=== PATIENT | male | born 2000 | race Two or more races ===

== ENCOUNTER 2025-02-18 12:23 | Emergency (ER) | payer OTHER ==
[~2025-02-18] VITALS: Ht 180.3 cm; Wt 61.2 kg
[2025-02-18] MEDS ORDERED: ACETAMINOPHEN 500 MG GEL..CAP PO ONE ×2 (13:15→13:54)
[2025-02-18] MEDS ORDERED: TAMSULOSIN HCL 0.4 MG CAP PO ONE ×2 (13:15→13:54)
[2025-02-18] MEDS ORDERED: 0.9 % SODIUM CHLORIDE 1,000 ML IV ONE (13:15)
[2025-02-18] MEDS ORDERED: KETOROLAC TROMETHAMINE 30 MG VIAL IU ONE (13:15)
[2025-02-18] MEDS ORDERED: KETOROLAC TROMETHAMINE 30 MG VIAL ONE (13:53)
[2025-02-18 14:53] LABS: BASO % 0.7 % (0.1-1.2); EOS # 0.07 (0.04-0.54); EOS % 1.7 % (0.7-7.0); LYMPH # 1.24 (1.18-3.74); LYMPH % 29.3 % (19.3-53.1); MEAN PLATELET VOLUME 10.30 fl (9.4-12.4); MONO # 0.33 (0.24-0.82); MONO % 7.8 % (4.7-12.5); NEUT # 2.55 (1.56-6.13); NEUT % 60.3 % (34.0-71.1); RED CELL DISTRIBUTION WIDTH 11.8 % (11.6-14.4)
[2025-02-18 15:27] LABS: ALT/SGPT 31.0 U/L (12-78); AST/SGOT 20.0 U/L (15-37); BILIRUBIN TOTAL 1.41 mg/dL (0.3-1.2); BUN CREA RATIO 12.0 (7.0-25.0); CREATININE SERUM 0.9 mg/dL (0.70-1.30); GFR 105.52; GLOBULINA 3.6 G/DL (2.4-3.5); GLUCOSE FASTING 77.0 mg/dL (65-100); OSMOLALITY SERUM 279.0 MOSM/KG (275-295)
[2025-02-18 16:16] LABS: URINE APPEARANCE Clear; URINE BILIRRUBIN Negative (NEGATIVE); URINE BLOOD Negative; URINE COLOR Yellow; URINE GLUCOSE Negative (NEGATIVE); URINE KETONE 15 (NEGATIVE); URINE LEUKOCYTE Negative; URINE NITRATE Negative; URINE PROTEIN Negative (NEGATIVE); URINE UROBILINOGEN 1.0 E.U./dl
[2025-02-18 16:19] LABS: URINE BACTERIA 9.1 uL (0.0-1933); URINE EPITHELIAL CELLS 7.9 uL (0.0-38.8); URINE WBC 11.0 uL (0.0-23.2)
[2025-02-18 16:25] LABS: URINE CAST 0.14 uL (0.0-1.40); URINE RBC 1.2 uL (0.0-20.8)
[2025-02-18] MEDS ORDERED: PYRIDIUM DS200 MG PO (16:44)
[2025-02-18] MEDS ORDERED: PEPCID AC20 MG PO (16:44)
[2025-02-18] MEDS ORDERED: AMOX1TAB5 PO (16:44)
== END 2025-02-18 17:27 | disposition home or self-care (01) ==
LOC: ER 12:24
PROVIDERS: General Practice
DX: A08.4 Viral intestinal infection, unspecified (principal); N39.0 Urinary tract infection, site not specified